=== PATIENT | male | born 2000 | race Caucasian/White ===

== ENCOUNTER 2021-09-09 17:22 | Emergency (ER) ==
[~2021-09-09] VITALS: Ht 180.3 cm; Wt 79.5 kg
[2021-09-09 17:23] VITALS: BP 131/75
== END 2021-09-09 17:31 | disposition left against medical advice (07) ==
LOC: M ED 17:22
DX: Z53.21 Procedure and treatment not carried out due to patient leaving prior to being seen by health care provider (principal)

== ENCOUNTER 2023-02-22 10:22 | Day surgery (SDC) | payer OTHER ==
[~2023-02-22] VITALS: Ht 182.9 cm; Wt 78.8 kg
[~2023-02-22 10:22] MED LIST: LIDOCAINE 2% 100MG/5ML SDV (FOR ANES.) As Ordered ONE; NS 1,000 ML IV ONE; fentaNYL 100 MCG/2 ML INJECTION As Ordered ONE; propofoL 200 MG/20 ML VIAL As Ordered ONE
[2023-02-22 12:11] VITALS: BP 132/66; O2SAT 99
== END 2023-02-22 12:29 | disposition home or self-care (01) ==
LOC: M OPP 10:22
PROVIDERS: ATTEND Internal Medicine Gastroenterology
DX: K22.89 Other specified disease of esophagus (principal); K20.0 Eosinophilic esophagitis; R13.10 Dysphagia, unspecified
CPT/HCPCS: 43249; 88305; J3010

== ENCOUNTER 2023-06-29 15:21 | Emergency (ER) | payer OTHER ==
[~2023-06-29] VITALS: Ht 180.3 cm; Wt 76.8 kg
[2023-06-29 17:27] VITALS: BP 129/75; TEMP 98.2; O2SAT 98
[2023-06-29 18:32] LABS: Trichomonas vaginalis (AMP) NOT DETECTED (NEGATIVE)
[2023-06-29] MEDS ORDERED: OSEL75CA PO (18:51)
[2023-06-29] MEDS ORDERED: IBUP-1022 PO (18:51)
[2023-06-29] MEDS ORDERED: BENZ200C70 PO (18:52)
[2023-06-29 18:56] LABS: GC DNA AMPLIFICATION NEGATIVE (NEGATIVE)
== END 2023-06-29 18:56 | disposition home or self-care (01) ==
LOC: M ED 15:21
DX: J09.X2 Influenza due to identified novel influenza A virus with other respiratory manifestations (principal); N45.1 Epididymitis; Z86.19 Personal history of other infectious and parasitic diseases; Z79.1 Long term (current) use of non-steroidal anti-inflammatories (NSAID); Z79.83 Long term (current) use of bisphosphonates; Z79.899 Other long term (current) drug therapy